=== PATIENT | female | born 1980 | race Caucasian/White ===

== ENCOUNTER 2020-11-15 23:05 | Emergency (ER) ==
[~2020-11-15] VITALS: Ht 157.5 cm; Wt 61.4 kg
== END 2020-11-16 00:27 | disposition home or self-care (01) ==
LOC: COL.ER 23:05
DX: S61.210A Laceration without foreign body of right index finger without damage to nail, initial encounter (principal); W26.0XXA Contact with knife, initial encounter

== ENCOUNTER → 2020-12-05 | Outpatient (CLI) | payer BC ==
[2020-12-05 15:30] VITALS: BP 146/87; PULSE 48; TEMP 98.4
== END ==
LOC: COL.ER 15:20
DX: Z48.02 Encounter for removal of sutures (principal)